=== PATIENT | female | born 1970 | race Two or more races ===

== ENCOUNTER 2025-01-08 03:57 | Emergency (ER) | payer MEDICAID, SELFPAY ==
[2025-01-08 03:57] VITALS: BMI 33.0
[2025-01-08 04:05] VITALS: BP 140/76; PULSE 72; RESP 19; TEMP 36.8; O2SAT 99
--- NOTE | 2025-01-08 04:07 | PD.EDFMALE ---
ED Female Urogenital RME/HPI General Chief complaint: Urogenital-Female Stated complaint: BURNING AND BLOOD WITH URINATION Time Seen by Provider: 01/08/25 04:05 Arrival date/time: 01/08/25 03:57 RME / HPI RME / HPI Narrative: This section includes all my notes and documentations, including HPI, PE, and ED course. Chente Sykes MD HPI: 54 y/o female presents to ED c/o painful urination, blood in the urine, and suprapubic abdominal pain x 24 hours. No other complaints. ROS: All negative except as documented in HPI. Physical Exam: General: Alert and oriented. No acute distress when remaining still. Eyes: Conjunctivae and lids clear. ENT: No nasal congestion. Neck: Supple. Heart: RRR. Lungs: No respiratory distress. Good air movement. No rhonchi, wheezing, rales. Abdomen: Soft and nontender. Normal bowel sounds. No distension. No rebound or guarding. Back: No CVA tenderness. Skin: Warm and dry. Neuro: Alert and oriented X 3. I reviewed all diagnostic test results. UA showed UTI. At this point, diagnoses include UTI. Treatment here included Pyridium and Rocephin 1 g IM. Significant improvement noted. Based on my best medical judgment, made decision no further evaluation or treatment indicated at this time. Patient understands and agrees to the discharge instructions customized and printed, see below. Discharge instructions from Dr. Sykes: 1. After evaluation, you have UTI (see attached handout).? 2. Take cefdinir to kill the germs causing the infection.? Increase oral fluid to flush it out.? Maintain clear urine.? If dark or yellow, increase oral fluid. 3. Pyridium and Toradol for pain. 4. See a private doctor on 01/12/2025 for recheck.? Ask to check the final urine culture results from today to make sure cefdinir doesn't need to be changed due to resistance. 5. Seek immediate medical care with worsening, fever, or with any concerns. Chente Sykes MD Related Data Home Medications ?Medication ?Instructions ?Recorded ?Confirmed gemfibrozil 600 mg tablet (Lopid) 600 mg PO BID #0 tabs 05/13/17 Previous Rx's ?Medication ?Instructions ?Recorded cefdinir 300 mg capsule 300 mg PO BID #14 caps 01/08/25 ketorolac 10 mg tablet 10 mg PO Q8H PRN pain 5 days #10 01/08/25 tabs phenazopyridine 200 mg tablet 200 mg PO TID PRN pain #6 tabs 01/08/25 (Pyridium) Allergies Allergy/AdvReac Type Severity Reaction Status Date / Time NKA* Allergy Uncoded 05/13/17 20:05 Review of Systems Review of Systems Systems Reviewed: All systems reviewed, normal except as documented Past Medical History Social History SMOKING STATUS: Never smoker ED Exam Narrative Physical exam: Refer to HPI above Course Quality Measures none Orders Category Date Time Status UA, C/S IF [Urinalysis, C/S if Indicated] Stat Lab 01/08/25 04:10 Completed Urine Culture Stat Lab 01/08/25 04:10 Received Phenazopyridine HCl [Pyridium] Med 01/08/25 04:05 Discontinued 200 mg PO X1 ONE cefTRIAXone [Rocephin] 1,000 mg Med 01/08/25 04:44 Discontinued Lidocaine 1% 20 ml [Xylocaine 1% 20 ML] 2.1 ml IM X1 Vital Signs Vital signs: Vital Signs Temperature 98.3 F 01/08/25 04:05 Pulse Rate 72 01/08/25 04:05 Respiratory Rate 19 01/08/25 04:05 Blood Pressure 140/76 H 01/08/25 04:05 Pulse Oximetry (%) 99 01/08/25 04:05 Oxygen Delivery Method Room Air 01/08/25 04:05 Urogenital - Female MDM Narrative MDM Narrative:: Scribe Attestation: Gloria Leija, arron scribing for and in the presence of Dr. Sykes. Provider Notation: Although this document has been carefully reviewed, there may still be some phonetic and other typographical errors.? These errors are purely grammatical due to imperfections in the software program and should not be construed in any way to? compromise the substance of the patient's medical care during this visit. 54 y/o female presents to ED c/o painful urination, blood in the urine, and suprapubic abdominal pain x 24 hours. No other complaints. Patient data External records reviewed:: [facility] [place] previous records (No prior ED records available for review) Clinical information provided by:: patient Social determinants that could affect healthcare access:: none Patient has the following chronic illnesses:: None reported How is presenting disease/condition affected by chronic disease/condition?: no chronic disease Evaluation data The following diagnostics were reviewed and interpreted by me:: lab results Lab and/or radiology exams considered but not ordered:: None Interpretation Summary: UTI Medications / Prescriptions Medications or Prescriptions considered but not ordered:: None Medication administrations:: Medication Administration History Discontinued Medications Ceftriaxone Sodium 1,000 mg/ (Lidocaine HCl 2.1 ml) 0 mg IM X1 ONE Stop: 01/08/25 04:45 Last Admin: 01/08/25 04:53 Dose: 1,000 mg Documented By: DEBBY Phenazopyridine HCl (Phenazopyridine Hcl 100 Mg Tablet) 200 mg PO X1 ONE Stop: 01/08/25 04:06 Last Admin: 01/08/25 04:48 Dose: 200 mg Documented By: DEBBY Pyridium and Rocephin IM Consultations Consultation(s) initiated? (list below): No Diagnosis Urogenital Female Differential Diagnosis: urinary tract infection, bacterial vaginosis, trichomoniasis, cervicitis, ovarian cyst, vaginitis, ruptured ovarian cyst, cyst of Bartholin's gland and cystitis Most likely diagnosis given after review of the tests above:: UTI Admission Indicated Admission indicated?: not indicated Explain why admission is indicated or not indicated:: With no severe illness, there was no indication for admission. Admission Request Was there a request for admission?: No Disposition Plan Disposition Plan: Discharge Discharge Attestation Discharge Attestation: The patient and all family members were given an opportunity to ask questions and understood the discharge instructions. Discharge instructions specifically effects, indications for sooner follow up or return to the emergency department, and the expected course of current diagnosis. Patient condition: Stable Discharge Plan Plan Patient Disposition: HOME (Self Care) Prescriptions/Referrals Prescriptions/Med Rec: New phenazopyridine [Pyridium] 200 mg tablet 200 mg PO TID PRN (Reason: pain) Qty: 6 0RF ketorolac 10 mg tablet 10 mg PO Q8H PRN (Reason: pain) 5 Days Qty: 10 0RF cefdinir 300 mg capsule 300 mg PO BID Qty: 14 0RF No Action gemfibrozil [Lopid] 600 MG tablet 600 mg PO BID Qty: 0 Referrals: Temporary Provider,ED [Physician] - In 1 week Problem List Clinical Impression: Urinary tract infection Patient/Caregiver Discharge Instructions Discharge Activity: activity as tolerated Education Materials: ED CYSTITIS Female Adult Additional Instructions: Discharge instructions from Dr. Sykes: 1. After evaluation, you have UTI (see attached handout).? 2. Take cefdinir to kill the germs causing the infection.? Increase oral fluid to flush it out.? Maintain clear urine.? If dark or yellow, increase oral fluid. 3. Pyridium and Toradol for pain. 4. See a private doctor on 01/12/2025 for recheck.? Ask to check the final urine culture results from today to make sure cefdinir doesn't need to be changed due to resistance. 5. Seek immediate medical care with worsening, fever, or with any concerns. Instrucciones de donis del Dr. Sykes: 1. Despu?s de la evaluaci?n, presenta kirby infecci?n urinaria (shay folleto adjunto). 2. [place]rs cefdinir para eliminar los g?rmenes que causan la infecci?n. Aumente la cantidad de fluidos bucales para eliminarlos. Mantenga la orina khoi. Si es oscura o amarilla, aumente la cantidad de fluidos bucales. 3. Pyridium y Toradol para el dolor. 4. Consulte con un m?dico particular el 09/18/2024 para kirby nueva revisi?n. Solicite que revisen los resultados finales del urocultivo de hoy para asegurarse de que no sea necesario cambiar el cefdinir debido a la resistencia. 5. Busque atenci?n m?dica inmediata si presenta empeoramiento, fiebre o cualquier inquietud. Print Language: Swedish Stand Alone Forms: Clara Award Info., Patient Portal Info Letter
[2025-01-08 04:14] LABS: Collection Type, Urine Clean Catch
[2025-01-08] MEDS: PHENAZOPYRIDINE HCL 100 MG TABLET 200 MG PO (04:48)
[2025-01-08] MEDS: cefTRIAXone 1,000 MG, LIDOCAINE 1% 20 ML 2.1 ML IM (04:53)
[2025-01-08 05:11] LABS: Bacteria,Urine Rare; Bilirubin,Urine Negative (Negative); Blood,Urine 3+ (Negative); Clarity,Urine Turbid (Clear/Hazy); Color,Urine Lt-Yellow (Lt Yel-Yel); Glucose, Urine Negative (Negative); Ketones,Urine Negative (Negative); Leukocyte Esterase,Urine Positive (Negative); Nitrite,Urine Negative (Negative); Protein,Urine Negative (Neg - Trace); RBC,Urine 869 /hpf (0-3); Specific Gravity,Urine 1.013 (1.001-1.035); Squamous Epithelial Cell,Urine 5 /hpf (0-5); Urobilinogen,Urine Negative mg/dL (0.0-1.0); WBC,Urine 210 /hpf (0-5)
[2025-01-08 05:12] LABS: Culture Indicated,Urine Yes
== END 2025-01-08 04:58 | disposition home or self-care (01) ==
LOC: SERX 05:05
PROVIDERS: Emergency Provider Emergency Medicine; PCP Physician Assistant
DX: N39.0 Urinary tract infection, site not specified (principal)
CPT/HCPCS: 81001; 81025; 87077; 87086; 87186; 96372; 99283; J0696; J3490; A9270

== ENCOUNTER → 2025-03-20 | Outpatient (CLI) | payer MEDICAID, SELFPAY ==
--- NOTE | 2025-03-20 13:30 | XR_ITS ---
Examination: Breast ultrasound complete, bilateral Date and time of exam: March 30, 2025 1416 hours INDICATIONS: Breast imaging, patient cannot cooperate for mammography Technique: Real-time grayscale ultrasonographic imaging bilateral breasts, including all 4 quadrants as well as nipple retroareolar and axillary regions. Findings: Sonographic images right breast 11:00 cyst 10 x 10 mm, no solid nodules Sonographic images left breast 12:00 cyst, 4 x 5 mm, no solid nodules Bilateral smaller cysts IMPRESSION: BI-RADS Category 2: Benign findings
== END | disposition home or self-care (01) ==
LOC: CDIM 13:42
PROVIDERS: PCP Physician Assistant; Referring Provider Physician Assistant; Visit Provider Physician Assistant
DX: N60.01 Solitary cyst of right breast (principal); N60.02 Solitary cyst of left breast
CPT/HCPCS: 76641